=== PATIENT | female | born 1985 | race Caucasian/White ===

== ENCOUNTER 2020-02-07 06:39 | Outpatient (CLI) | payer BC, OTHER ==
[2020-02-07 16:10] LABS: Hemoglobin 14.3 g/dL (12.0-16.0); Mean Corpuscular HGB CONC 33.8 g/dL (32.0-36.0); Mean Corpuscular Hemoglobin 29.9 pg (27.0-31.0); Mean Corpuscular Volume 88.2 fL (78.0-98.0); Mean Platelet Volume 8.1 fL (7.4-10.4); Platelet Count 180 thou/uL (130-400); RBC Distribution Width 10.7 % (11.5-14.5); White Blood Cell (WBC) Count 6.7 thou/uL (4.8-10.8)
[2020-02-07 16:22] LABS: Anion Gap 10 mmol/L (10-20); BUN (Urea Nitrogen) 13 mg/dL (7.0-18.7); Calc. Creatinine Clearance 0 mL/min (70-130); Calcium 9.5 mg/dL (7.8-10.44); Carbon Dioxide 29 mmol/L (22-29); Chloride 104 mmol/L (98-107); Estimated GFR-MDRD Greater than 90; Glucose 85 mg/dL (70-105); Sodium 139 mmol/L (136-145)
[2020-02-07 16:24] LABS: BHCG - Serum Negative (NEGATIVE); Pregs Control Background? CLEAR/WHITE (CLR/WHITE); Pregs Control Bar Appear? YES (CONTROL BAR)
== END 2020-02-07 06:40 | disposition home or self-care (01) ==
LOC: LABBT 06:39
PROVIDERS: ATTEND Neurological Surgery
DX: Z01.818 Encounter for other preprocedural examination (principal); Z11.59 Encounter for screening for other viral diseases; M43.16 Spondylolisthesis, lumbar region
CPT/HCPCS: 80048; 84703; 85027; 87635; 93005; 93010; U0003

== ENCOUNTER 2020-02-12 06:06 | Day surgery (SDC) | payer BC ==
[2020-02-06 12:32] VITALS: BMI 29.1
[2020-02-12] MEDS ORDERED: Fentanyl 250 MCG/5 ML VIAL ONE (07:02)
[2020-02-12] MEDS ORDERED: Midazolam HCl 2 mg/2 ml Vial ONE ×2 (07:10→10:11)
[2020-02-12] MEDS ORDERED: SUGAMMADEX SODIUM 200 MG/2 ML VIAL ONE (08:25)
[2020-02-12] MEDS ORDERED: Fentanyl 100 MCG/2 ML VIAL ONE ×2 (09:22→09:41)
[2020-02-12] MEDS ORDERED: HYDROmorphone 0.5 MG/0.5 ML SYRINGE ONE ×2 (09:34→09:50)
[2020-02-12] MEDS ORDERED: Promethazine HCl 25 MG/ML VIAL ONE (10:04)
--- NOTE | 2020-02-12 10:51 | OP ---
DATE OF PROCEDURE: 02/12/2020 DAIRY INSPECTOR: Cindy Palacio PA-C PROCEDURES PERFORMED: L4-L5 decompressive laminectomy, posterolateral arthrodesis, pedicle screw instrumentation L4-L5, demineralized bone matrix, local morselized autograft. DESCRIPTION OF PROCEDURE: The patient was brought to the operating room and intubated. She was rolled in a prone position on gel-filled chest rolls. An incision was made exposing L4 and L5 and the level was confirmed by x-ray. After performing L4-L5 laminectomy, we placed pedicle screws at L4 and L5 bilaterally using lateral fluoroscopic guidance. The philomena was secured between the screws. Distraction was applied and the rods were secured by nuts, which were final tightened. The wound was then extensively irrigated and MAC hemostasis was secured. A combination of demineralized bone matrix and local morselized autograft was laid over the lamina and posterolateral surfaces for the purpose of arthrodesis. Vancomycin powder was applied and the wound was then closed in anatomic layers. Job ID: [id number]
[2020-02-12] MEDS ORDERED: Rocuronium Bromide 10 MG/ML (10ML VIAL) ONE (11:14)
[2020-02-12] MEDS ORDERED: Ondansetron PF 4 MG/2 ML Vial ONE (11:14)
[2020-02-12] MEDS ORDERED: PROPOFOL 200 MG/20 ML VIAL ONE (11:14)
[2020-02-12] MEDS ORDERED: Ketorolac Tromethamine 30 MG/ML VIAL ONE (11:14)
[2020-02-12] MEDS ORDERED: Lidocaine 1% PF 5 ML VIAL ONE (11:14)
[2020-02-12] MEDS ORDERED: Dexamethasone 20 MG/5 ML VIAL ONE (11:14)
[2020-02-12] MEDS ORDERED: Morphine 2 MG/ML SYRINGE ONE ×3 (11:22→13:15)
[2020-02-12] MEDS ORDERED: HYDROcodone/Acetaminophen 5/325 mg Tablet ONE (13:22)
--- NOTE | 2020-02-15 20:32 | HP ---
HISTORY OF PRESENT ILLNESS: The patient is a -[id number] female with a past medical history of Crohn disease, on Humira, who was referred by [facility], Dr. Chatterjee for progressive back and leg pain. Her MRI was notable for L4-L5 spondylolisthesis with bilateral pars defects and concentric stenosis. She had failed all conservative therapies and Dr. Boyle met with the patient and discussed plans for L4-L5 decompression and fusion for surgical intervention. The patient understood and wished to proceed. PAST MEDICAL HISTORY: Crohn disease, chronic back pain. PAST SURGICAL HISTORY: Colostomy with later reversal. CURRENT MEDICATIONS: 1. Humira. 2. Tylenol #4. 3. Tizanidine. 4. Prozac. 5. Meclizine. ALLERGIES: NO KNOWN DRUG ALLERGIES. REVIEW OF SYSTEMS: PHYSICAL EXAMINATION: GENERAL: The patient was comfortable, no acute distress. HEENT: Head, normocephalic and atraumatic. Eyes, PERRLA. Extraocular movements intact. ENT; pink, intact, moist. Normal voice. NECK: Nontender. Free active range of motion. No meningismus or nuchal rigidity. BACK: Tenderness over the lower lumbar spine, pain with forward flexion. MUSCULOSKELETAL: No obvious deformities. Free active range of motion of all extremities. No focal motor weakness or reflex asymmetry. NEUROLOGIC: No focal neurologic deficits are appreciated. ASSESSMENT: L4-L5 spondylolisthesis, pars defects with concentric stenosis. PLAN: L4-5 decompression and fusion. Job ID: [id number]
== END 2020-02-12 14:30 | disposition home or self-care (01) ==
LOC: SDC 06:06
PROVIDERS: ATTEND Neurological Surgery
PROC: 0SG00J1 Fusion of Lumbar Vertebral Joint with Synthetic Substitute, Posterior Approach, Posterior Column, Open Approach (ICD-10-PCS; principal; 2020-02-12)
DX: M43.16 Spondylolisthesis, lumbar region (principal); Z79.899 Other long term (current) drug therapy
CPT/HCPCS: 76000; C1768; J0690; J1100; J1170; J1885; J2001; J2250; J2270; J2405; J2550; J2704; J3010; J3370

== ENCOUNTER 2020-02-29 10:50 | Outpatient (CLI) | payer BC ==
--- NOTE | 2020-02-29 11:38 | RAD ---
LUMBAR SPINE 2 VIEWS: Date: 02/29/2020 HISTORY: Spondylolisthesis of lumbar region. Follow-up post surgery approximately 2 weeks ago. COMPARISON: None. FINDINGS: Pedicle screws stabilize L4 and L5 with prominent pars defect at L4. Slight anterolisthesis of L4 on L5 with some disc space narrowing and sclerosis and eburnation. No other acute process. IMPRESSION: Postoperative changes as above. No prior imaging available for comparison. POS: [facility]RE
== END 2020-02-29 10:51 | disposition home or self-care (01) ==
LOC: TBSIIMAG 10:50
PROVIDERS: ATTEND Neurological Surgery
DX: M43.16 Spondylolisthesis, lumbar region (principal); Z98.890 Other specified postprocedural states
CPT/HCPCS: 72100